=== PATIENT | female | born 1970 | race Caucasian/White ===

== ENCOUNTER 2018-07-29 06:23 | Day surgery (SDC) | payer BC ==
--- NOTE | 2018-07-28 14:08 | PREOPHP ---
Date of Admission: 07/28/2018 History Of Present Illness: Ms. Salazar is a 48-year-old female, nulligravida, who is admitted for evaluation of postmenopausal bleeding. She has documented menopause by outpatient FSH testing. She has had bleeding for almost a month period of time. Attempted endometrial office biops y was not successful because of cervical stenosis because of lack of prior and delivery. S he is admitted for hysteroscopy, dilatation and curettage for evaluation of her bleeding. Preoperati ve pelvic ultrasound shows 2 small leiomyomata. Past Medical History: Includes no significant hospitalizations, accidents, illnesses or injuries. Current Medications: Include Benicar, losartan and Nexium. Allergies: SHE LISTS A REACTION TO TETRACYCLINE AND AUGMENTIN. Social History: She does not smoke. Family History: Noncontributory. Review of Systems: She reports no recent cough, cold or fever. No recent nausea or vomiting. She denies any breast lum ps or knots. She denies any bowel or bladder issues other than some mild left lower quadrant discomf ort. Ultrasound has not shown evidence of Retail Representative pathology on that side. Physical Examination: General: Reveals female, in no apparent distress. Neck: Supple without adenopathy or thyromegaly. Lungs: Clear. Cardiac: Regular rate and rhythm without murmurs. Breasts: Not examined. Abdomen: Without organosplenomegaly. Pelvic: Normal female external genitalia. Vaginal wall is pink and rugated. Cervix is nulliparous. Bimanual, no abnormalities. Extremities: No cyanosis, clubbing, or edema. Impression: 1.Postmenopausal bleeding. 2.Leiomyomata. Plan: The patient will undergo hysteroscopy and D and C for evaluation of postmenopausal bleeding. Risks and benefits are discussed. She has signed operative permit in my presence. CHRIS/BRYCE Voice ID: [id number]
[2018-07-28 15:25] LABS: Absolute Lymphocytes (CBC) 1.7 K/uL (0.7-4.9); Absolute Monocytes 0.6 K/uL (0.1-1.3); Absolute Neutrophil 3.6 K/uL (1.8-8.0); Basophils % 0.3 % (0-1.3); Eosinophils % 1.2 % (0-4.4); Hematocrit 40.1 % (36.0-45.0); MPV 7.4 fL (7.6-11.3); Monocytes % 9.9 % (3.3-12.3); RBC Red Blood Cell Count 4.76 M/uL (3.86-4.86)
[2018-07-28 15:38] LABS: Potassium 4.1 mmol/L (3.5-5.1)
[2018-07-29] MEDS ORDERED: Ringers Lactate 1,000 ML IV ONE (06:38)
[2018-07-29] MEDS ORDERED: LIDOCAINE 1% MPF 5 ML VIAL ONE (06:40)
[2018-07-29] MEDS ORDERED: NA CHLORIDE 0.9% 1,000 ML ONE (07:12)
[2018-07-29] MEDS ORDERED: FENTANYL CITR 100 MCG/2 ML ONE (07:18)
[2018-07-29] MEDS ORDERED: PROPOFOL 200 MG/20 ML VIAL IV ONE (07:18)
[2018-07-29] MEDS ORDERED: MIDAZOLAM HCL 2 MG/2 ML INJ ONE (07:19)
[2018-07-29] MEDS ORDERED: LIDOCAINE 2% MPF 5 ML VIAL ONE (07:19)
[2018-07-29] MEDS: SILVER NITRATE 1 APPL TOP ONE ×2 (07:53→07:55)
[2018-07-29] MEDS ORDERED: KETOROLAC 30 MG/ML INJ ONE (07:56)
--- NOTE | 2018-07-29 17:45 | OP ---
Surgeon: Rahul Gonzales MD Documentation Analyst: None. Preoperative Diagnosis: Postmenopausal bleeding. Procedures: Hysteroscopy, dilatation and curettage of the uterine endometrium. Postoperative Diagnosis: Postmenopausal bleeding. Description Of Procedure: After satisfactory level of general anesthesia was obtained, the patient w as prepped and draped in the usual fashion in high leg holders for vaginal surgery. Weighted speculu m placed in posterior vagina. Cervix visualized, grasped with single-tooth tenaculum. Uterus was so unded to approximately 8 cm. Cervix dilated slightly to accept the hysteroscope. Visualization of t he endometrial contents revealed a somewhat thin endometrium. No obvious polyps or other areas of co ncern. Hysteroscope was removed. Brief curettage productive of minimal tissue was performed. The p atient was awakened, taken to the recovery room in satisfactory condition. One area of bleeding wher e the tenaculum was on the anterior cervix was treated with silver nitrate cautery. Estimated Total Blood Loss: Less than 5 mL. Anesthesia: HEDY Leiva, and Nasir Valenzuela/BRYCE Voice ID: [id number] Report ID: [id number]
--- NOTE | 2018-07-29 17:51 | DS ---
Date of Discharge: 07/29/2018 Final Hospital Discharge Diagnosis: Postmenopausal bleeding. Complications: None. Procedures: Hysteroscopy, dilatation and curettage up the endometrium. Hospital Course: The patient is a 48-year-old menopausal female with history of approximately 1 adalberto h of bleeding. Because of inability to do an outpatient endometrial biopsy, hysteroscopy and D and C were performed with minimal findings. The patient was dismissed to be seen back in my office in 2 w eeks. Lab work included a CBC with hemoglobin and hematocrit of 13.6 and 40.1 with normal electrolyt es. She was noted to have 2 small leiomyomata on ultrasound examination preoperatively. CHRIS/BRYCE Voice ID: [id number] Report ID: [id number]
== END 2018-07-29 09:25 | disposition home or self-care (01) ==
LOC: OR 06:23
PROVIDERS: ATTEND Specialist
PROC: 0UJD8ZZ Inspection of Uterus and Cervix, Via Natural or Artificial Opening Endoscopic (ICD-10-PCS; 2018-07-29)
PROC: 0UDB7ZX Extraction of Endometrium, Via Natural or Artificial Opening, Diagnostic (ICD-10-PCS; principal; 2018-07-29 07:30)
DX: N95.0 Postmenopausal bleeding (principal); I10 Essential (primary) hypertension; K21.9 Gastro-esophageal reflux disease without esophagitis; Z88.1 Allergy status to other antibiotic agents
CPT/HCPCS: 36415; 80048; 85025; 88305; J2250; J2704; J3010; J7030

== ENCOUNTER 2020-09-26 14:27 | Emergency (ER) | payer BC ==
--- OUTSIDE RECORDS SUMMARY | 2020-09-26 14:31 | XMS REPORT | Continuity of Care Document ---
:1970 Author Organization [facility] t Address [address] [place] [address] Care Team Providers Name Role Phone Lab, Fam Pob I Attending Clinician Unavailable Only, Test Attending Clinician Unavailable Doctor Unassigned, Name Attending Clinician Unavailable Problems This patient has no known problems. Allergies, Adverse Reactions, Alerts This patient has no known allergies or adverse reactions. Medications This patient has no known medications. Procedures This patient has no known procedures. Encounters Start End Encounter Admission Attending Care Care Encounter Source Date/Time Date/Time Type Type Clinicians Facility Department ID 2020-07-02 2020-07-02 Laboratory Lab, [facility] [id number] 16:27:10 16:47:10 Only Fam Pob I Health [id number] [place] [id number] [facility] [phone] nal [address] 2020-06-12 2020-06-12 Laboratory Only, [facility] [id number] 14:47:15 15:02:15 Only Test [place] [id number] [place] [id number] [place] [id number] [id number] 2020-06-12 2020-06-12 Orders Doctor UREÑA [id number] 00:00:00 00:00:00 Only Unassigned, YVETTE [id number] [place] [facility] [id number] 2020-04-23 2020-04-23 Laboratory Lab, [facility] [id number] 12:45:26 13:05:26 Only Fam Pob I Health [id number] [place] [id number] [place] [id number] nal 044 [address] 2020-04-23 2020-04-23 Letter Doctor ADELITA [id number] 00:00:00 00:00:00 (Out) Unassigned, YVETTE [id number] [place] [facility] [id number] 044 Results This patient has no known results.
--- NOTE | 2020-09-26 16:36 | RAD REPORT ---
EXAM DESCRIPTION: RAD - Chest Single View - 09/26/2020 4:17 pm CLINICAL HISTORY: N/V Chest pain. COMPARISON: Chest Pa And Lat (2 Views) dated 12/09/2017; ABDOMEN ACUTE SERIES dated 03/09/2006 FINDINGS: Portable technique limits examination quality. The lungs are grossly clear. The heart is normal in size. No displaced fractures.Cervical hardware pl ate noted. IMPRESSION: No acute intrathoracic process suspected.
[2020-09-26 16:38] LABS: Absolute Lymphocytes (CBC) 1.3 K/uL (0.7-4.9); Basophils % 0.4 % (0-1.3); Lymphocytes % 38.3 % (15.3-44.8); MPV 7.2 fL (7.6-11.3); RBC Red Blood Cell Count 4.69 M/uL (3.86-4.86)
[2020-09-26 16:51] LABS: Protime INR 0.97
[2020-09-26] MEDS ORDERED: NA CHLORIDE 0.9% 1,000 ML ONE (16:54)
[2020-09-26] MEDS ORDERED: ONDANSETRON 4 MG/2 ML VIAL ONE (16:54)
[2020-09-26] MEDS ORDERED: FAMOTIDINE 20 MG/2 ML VIAL IV ONE (16:55)
[2020-09-26 16:56] LABS: ALT/SGPT 51 U/L (12-78); Alkaline Phosphatase 62 U/L (45-117); BUN Blood Urea Nitrogen 13 mg/dL (7-18); Bicarbonate 25 mmol/L (21-32); Bilirubin Direct < 0.1 mg/dL (0-0.2); Bilirubin Total 0.5 mg/dL (0.2-1.0); Glucose Level 99 mg/dL (74-106); Lipase 84 U/L (73-393); NT PRO-BNP 51 pg/mL (<125); Potassium 4.5 mmol/L (3.5-5.1); Protein, Total 7.9 g/dL (6.4-8.2); Sodium Level 139 mmol/L (136-145); Troponin (Emerg Dept Use Only) < 0.02 ng/mL (0.0-0.045)
[2020-09-26 16:57] LABS: AST/SGOT 39 U/L (15-37)
[2020-09-26 17:12] LABS: SARS-COV-2 RT PCR POSITIVE (NEGATIVE)
--- NOTE | 2020-09-26 17:55 | EDPHYS ---
Physician Documentation [facility] Name: Manisha Salazar Age: 50 yrs Sex: Female : 1970 Arrival Date: 09/26/2020 Time: 14:29 Bed 18 Private MD: ED Physician Martinez Mensah HPI: 09/26 15:30 This 50 yrs old Female presents to ER via Ambulatory with complaints of cp Nausea, Blood Pressure Problem. 15:30 The patient presents to the emergency department with nausea, with "dry heaves", cp diarrhea, that is intermittent, 1 times today. 15:30 Onset: The symptoms/episode began/occurred today. Possible causes: unknown. Associated cp signs and symptoms: Pertinent negatives: low blood pressure, cough. Severity of symptoms: in the emergency department the symptoms have improved mildly. Patient reports being referred to ED for evaluation and COVID testing after having nausea with dry heaving today, 1 episode of diarrhea while having blood drawn. Historical: - Allergies: 14:41 TETRACYCLINES; ll1 - PMHx: 14:41 Hypertension; High Cholesterol; Diabetes - NIDDM; ll1 - PSHx: 14:41 None; ll1 - Immunization history:: Flu vaccine is up to date. - Social history:: Smoking status: Patient denies any tobacco usage or history of. ROS: 15:35 Constitutional: Negative for body aches, chills, fever, poor PO intake. cp 15:35 Eyes: Negative for injury, pain, redness, and discharge. cp 15:35 ENT: Negative for ear pain, sore throat, difficulty swallowing, difficulty handling secretions. 15:35 Cardiovascular: Negative for chest pain. 15:35 Respiratory: Positive for cough, Negative for shortness of breath, wheezing. 15:35 Abdomen/GI: Positive for nausea, diarrhea, Negative for abdominal pain, constipation, active vomiting. 15:35 Neuro: Negative for altered mental status, dizziness, headache, syncope, weakness. 15:35 All other systems are negative. Exam: 15:40 Constitutional: The patient appears in no acute distress, alert, awake, non-toxic, well cp developed, well nourished. 15:40 Head/Face: Normocephalic, atraumatic. cp 15:40 Eyes: Periorbital structures: appear normal, Conjunctiva: normal, no exudate, no injection, Sclera: no appreciated abnormality, Lids and lashes: appear normal, bilaterally. 15:40 ENT: External ear(s): are unremarkable, Nose: is normal, Mouth: Lips: moist, Oral mucosa: moist, Posterior pharynx: Airway: no evidence of obstruction, patent. 15:40 Neck: ROM/movement: is normal, is supple, no meningismus, no nuchal rigidity. 15:40 Chest/axilla: Inspection: normal. 15:40 Cardiovascular: Rate: normal, Rhythm: regular, Edema: is not appreciated, JVD: is not appreciated. 15:40 Respiratory: the patient does not display signs of respiratory distress, Respirations: normal, no use of accessory muscles, no retractions, labored breathing, is not present, Breath sounds: are clear throughout, no decreased breath sounds. 15:40 Abdomen/GI: Inspection: abdomen appears normal, Bowel sounds: active, all quadrants, Palpation: soft, in all quadrants. 15:40 Back: pain, is absent, ROM is normal. 15:40 Neuro: Orientation: to person, place \\T\\ time. Mentation: is normal, Motor: moves all fours, strength is normal. 16:15 ECG was reviewed by the Attending Physician. Vital Signs: 14:37 BP 147 / 94; Pulse 79; Resp 17; Temp 99.3; Pulse Ox 96% on R/A; Weight 98.43 kg; Height ll1 5 ft. 5 in. (165.10 cm); Pain 0/10; 15:58 BP 142 / 81 Supine; Pulse 77; mt 15:58 BP 134 / 76 Sitting; Pulse 79; mt 15:58 BP 157 / 85 Standing; Pulse 102; mt 17:00 BP 129 / 73; Pulse 67; Resp 18; Pulse Ox 96% ; dm14 18:00 BP 115 / 73; Pulse 67; Resp 18; Pulse Ox 96% ; dm14 14:37 Body Mass Index 36.11 (98.43 kg, 165.10 cm) ll1 MDM: 15:26 Patient medically screened. cp 17:53 Data reviewed: vital signs, nurses notes, lab test result(s), EKG, radiologic studies, cp plain films. 17:53 Test interpretation: by ED physician or midlevel provider: ECG, plain radiologic cp studies. Counseling: I had a detailed discussion with the patient and/or guardian regarding: the historical points, exam findings, and any diagnostic results supporting the discharge/admit diagnosis, lab results, radiology results, to return to the emergency department if symptoms worsen or persist or if there are any questions or concerns that arise at home. Response to treatment: the patient's symptoms have markedly improved after treatment. ED course: VSS. Nausea markedly improved and no vomiting observed while monitoring patient in ED. Patient appears non-toxic and no signs of respiratory distress. Will discharge patient to home to quarantine. Patient instructed to return to ED worsening symptoms. 09/26 15:43 Order name: COVID-19 : Document "Date of Symptom Onset" if Symptomatic. cp 09/26 15:43 Order name: Basic Metabolic Panel cp 09/26 15:43 Order name: CBC with Diff cp 09/26 15:43 Order name: LFT's cp 09/26 15:43 Order name: Magnesium cp 09/26 15:43 Order name: NT PRO-BNP; Complete Time: 17:17 cp 09/26 15:43 Order name: PT-INR; Complete Time: 17:17 cp 09/26 15:43 Order name: Troponin (emerg Dept Use Only); Complete Time: 17:17 cp 09/26 15:44 Order name: Basic Metabolic Panel; Complete Time: 17:17 EDMS 09/26 17:17 Interpretation: Normal except: GFR 83. cp 09/26 15:44 Order name: CBC with Automated Diff; Complete Time: 16:48 EDMS 09/26 16:49 Interpretation: Normal except: WBC 3.40; MPV 7.2; MN% 13.1; NEUT A 1.6. cp 09/26 15:44 Order name: Lipase; Complete Time: 17:17 cp 09/26 15:44 Order name: Liver (Hepatic) Function; Complete Time: 17:17 EDMS 09/26 17:17 Interpretation: Normal except: GLOB 3.9; A/G 1.0; AST 39. cp 09/26 15:43 Order name: Orthostatics; Complete Time: 15:59 cp 09/26 15:43 Order name: XRAY Chest (1 view); Complete Time: 16:48 cp 09/26 15:43 Order name: EKG; Complete Time: 15:44 cp 09/26 15:43 Order name: Cardiac monitoring; Complete Time: 16:14 cp 09/26 15:43 Order name: EKG - Nurse/Tech; Complete Time: 16:14 cp 09/26 15:43 Order name: IV Saline Lock; Complete Time: 17:06 cp 09/26 15:43 Order name: Labs collected and sent; Complete Time: 16:29 cp 09/26 15:43 Order name: O2 Per Protocol; Complete Time: 16:14 cp 09/26 15:43 Order name: O2 Sat Monitoring; Complete Time: 16:14 cp 09/26 15:44 Order name: Magnesium; Complete Time: 17:17 EDMS 09/26 17:13 Order name: COVID-19/FLU A+B; Complete Time: 17:17 EDMS 09/26 17:17 Interpretation: Abnormal: SARSCOV2 RT PCR POSITIVE. cp 09/26 17:18 Order name: PO challenge; Complete Time: 18:50 cp EC:15 Rate is 81 beats/min. Rhythm is regular. WI interval is normal. QRS interval is normal. cp QT interval is normal. T waves are Inverted in lead III. Interpreted by me. Reviewed by me. Administered Medications: 16:50 Drug: NS 0.9% 1000 ml Route: IV; Rate: 1 bolus; Site: right forearm; dm14 18:55 Follow up: IV Status: Completed infusion; IV Intake: 1000ml dm14 16:50 Drug: Zofran (Ondansetron) 4 mg Route: IVP; Site: right forearm; dm14 18:54 Follow up: Response: No adverse reaction dm14 16:50 Drug: Pepcid 20 mg Route: IVP; Site: right forearm; dm14 18:54 Follow up: Response: No adverse reaction dm14 Disposition: 21:58 Co-signature as Attending Physician, Martinez Mensah MD I agree with the assessment and kdr plan of care. Disposition: 09/26/20 17:54 Discharged to Home. Impression: Nausea and vomiting, Coronavirus infection, unspecified, Diarrhea, unspecified, Cough. - Condition is Stable. - Discharge Instructions: Nausea and Vomiting, Adult, Cough, Adult, COVID-19. - Prescriptions for Eliquis 2.5 mg Oral tablet - take 1 tablet by ORAL route 2 times per day for 15 days; 30 tablet. ivermectin 3 mg Oral tablet - take 6 tablet by ORAL route every other day x2 doses; 12 tablet. Zithromax Z- Isai 250 mg Oral Tablet - take 1 tablet by ORAL route as directed for 5 days Day 1 - take two (2) tablets one time. Day 2, 3, 4 , 5 take one (1) tablet once daily.; 6 tablet. Prednisone 20 mg Oral Tablet - take 2 tablets by ORAL route once daily for 5 days then take 1 tablet daily for 5 days; 15 tablet. Zofran 4 mg Oral Tablet - take 1 tablet by ORAL route every 12 hours As needed; 20 tablet. - Medication Reconciliation Form, Thank You Letter, Antibiotic Education, Prescription Opioid Use form. - Follow up: Conrad Laird MD; When: 2 - 3 days; Reason: Worsening of condition. - Problem is new. - Symptoms have improved. Signatures: Dispatcher [employer] EDMS Martinez Mensah MD MD kdr Oswald Senior PA PA cp Lewis, Lynsay, RN RN ll1 Giana Dhillon RN RN dm14 Corrections: (The following items were deleted from the chart) 16:11 15:44 Influenza Screen (A \\T\\ B)+BA.LAB.BRZ ordered. EDMS EDMS 16:17 15:44 CORONAVIRUS ordered. EDMS EDMS 18:56 17:54 09/26/2020 17:54 Discharged to Home. Impression: Nausea and vomiting; Coronavirus dm14 infection, unspecified; Diarrhea, unspecified; Cough. Condition is Stable. Forms are Medication Reconciliation Form, Thank You Letter, Antibiotic Education, Prescription Opioid Use. Follow up: Conrad Laird; When: 2 - 3 days; Reason: Worsening of condition. Problem is new. Symptoms have improved. cp
--- NOTE | 2020-09-26 17:55 | ER ---
Nurse's Notes [facility] Name: Manisha Salazar Age: 50 yrs Sex: Female : 1970 Arrival Date: 09/26/2020 Time: 14:29 Bed 18 Private MD: Diagnosis: Nausea and vomiting;Coronavirus infection, unspecified;Diarrhea, unspecified;Cough Presentation: 09/26 14:37 Chief complaint: Patient states: BP has been low the past week. 90's, 107 systolic. ll1 Fever for 2 days (101 at home). + nausea, diarrhea, and dry heaves when getting blood drawn today. Sent in by Dr. Laird for eval and covid test. + congestion. Coronavirus screen: Client denies travel out of the [place] in the last 14 days. congestion, fatigue, fever, nausea, vomiting. Client presents with at least one sign or symptom that may indicate coronavirus-19. Standard/surgical mask placed on the client. Ebola Screen: Patient denies travel to an Ebola-affected area in the 21 days before illness onset. Initial Sepsis Screen: Does the patient meet any 2 criteria? No. Patient's initial sepsis screen is negative. Does the patient have a suspected source of infection? Yes: Other: N/V. Risk Assessment: Do you want to hurt yourself or someone else? Patient reports no desire to harm self or others. Onset of symptoms was September 20, 2020. 14:37 Method Of Arrival: Ambulatory ll1 14:37 Acuity: CHANELL 3 ll1 Historical: - Allergies: 14:41 TETRACYCLINES; ll1 - PMHx: 14:41 Hypertension; High Cholesterol; Diabetes - NIDDM; ll1 - PSHx: 14:41 None; ll1 - Immunization history:: Flu vaccine is up to date. - Social history:: Smoking status: Patient denies any tobacco usage or history of. Screenin:00 Abuse screen: Denies threats or abuse. Denies injuries from another. Nutritional dm14 screening: No deficits noted. Tuberculosis screening: No symptoms or risk factors identified. Fall Risk None identified. Assessment: 18:50 General: Appears in no apparent distress. comfortable, well groomed, Behavior is calm, dm14 cooperative, appropriate for age. 18:56 GI: dm14 Vital Signs: 14:37 BP 147 / 94; Pulse 79; Resp 17; Temp 99.3; Pulse Ox 96% on R/A; Weight 98.43 kg; Height ll1 5 ft. 5 in. (165.10 cm); Pain 0/10; 15:58 BP 142 / 81 Supine; Pulse 77; mt 15:58 BP 134 / 76 Sitting; Pulse 79; mt 15:58 BP 157 / 85 Standing; Pulse 102; mt 17:00 BP 129 / 73; Pulse 67; Resp 18; Pulse Ox 96% ; dm14 18:00 BP 115 / 73; Pulse 67; Resp 18; Pulse Ox 96% ; dm14 14:37 Body Mass Index 36.11 (98.43 kg, 165.10 cm) ll1 ED Course: 14:29 Patient arrived in ED. as 14:40 Triage completed. ll1 14:41 Arm band placed on. ll1 15:03 Oswald Senior PA is PHCP. cp 15:03 Martinez Mensah MD is Attending Physician. cp 15:21 Giana Dhillon, MELECIO is Primary Nurse. dm14 16:13 EKG done, by ED staff, reviewed by Oswald ESCALONA. mt 16:17 XRAY Chest (1 view) In Process Unspecified. EDMS 16:39 Inserted saline lock: 20 gauge in right wrist, using aseptic technique. jl7 17:53 Conrad Laird MD is Referral Physician. cp 18:00 Patient has correct armband on for positive identification. Bed in low position. Call dm14 light in reach. 18:00 No provider procedures requiring assistance completed. IV discontinued, intact, dm14 bleeding controlled, No redness/swelling at site. Pressure dressing applied. Administered Medications: 16:50 Drug: NS 0.9% 1000 ml Route: IV; Rate: 1 bolus; Site: right forearm; dm14 18:55 Follow up: IV Status: Completed infusion; IV Intake: 1000ml dm14 16:50 Drug: Zofran (Ondansetron) 4 mg Route: IVP; Site: right forearm; dm14 18:54 Follow up: Response: No adverse reaction dm14 16:50 Drug: Pepcid 20 mg Route: IVP; Site: right forearm; dm14 18:54 Follow up: Response: No adverse reaction dm14 Intake: 18:55 IV: 1000ml; Total: 1000ml. dm14 Outcome: 17:54 Discharge ordered by . cp 18:55 Discharged to home ambulatory. dm14 18:55 Condition: stable 18:55 Discharge instructions given to patient, Instructed on discharge instructions, follow up and referral plans. medication usage, Demonstrated understanding of instructions, follow-up care, medications. 18:56 Patient left the ED. dm14 Signatures: Dispatcher [employer] EDElise Gonzlaez Corey, PA PA cp Leal, Jahala, RN RN jl7 Geni Choi mt, Lynsay, RN RN ll1 Giana Dhillon RN RN dm14
[2020-09-26 20:23] VITALS: TEMP 99.3; O2SAT 96
[2020-09-26 20:27] VITALS: BP 115/73
== END 2020-09-26 18:56 | disposition home or self-care (01) ==
LOC: ER 14:27
DX: U07.1 COVID-19 (principal); R11.2 Nausea with vomiting, unspecified; R05 Cough; R19.7 Diarrhea, unspecified; I10 Essential (primary) hypertension; E78.00 Pure hypercholesterolemia, unspecified; E11.9 Type 2 diabetes mellitus without complications
CPT/HCPCS: 96361; 93005; 85025; 80048; 36415; 83735; 85610; 80076; 84484; 83690; 83880; 0240U; 71045; 96375; 96374; 99284; J7030; J2405

== ENCOUNTER 2020-10-07 12:14 | Emergency (ER) | payer BC ==
--- OUTSIDE RECORDS SUMMARY | 2020-10-07 12:16 | XMS REPORT | Continuity of Care Document ---
:1970 Author Organization [facility] t Address [address] [place] [address] Care Team Providers Name Role Phone Therapy, Covid Infusion Attending Clinician Unavailable Doctor Unassigned, Name Attending Clinician Unavailable Lab, Fam Pob I Attending Clinician Unavailable Only, Test Attending Clinician Unavailable Problems This patient has no known problems. Allergies, Adverse Reactions, Alerts This patient has no known allergies or adverse reactions. Medications This patient has no known medications. Procedures This patient has no known procedures. Encounters Start End Encounter Admission Attending Care Care Encounter Source Date/Time Date/Time Type Type Clinicians Facility Department ID 2020-10-01 2020-10-01 Nurse Therapy, [facility] [id number] 16:04:20 18:01:29 Visit [facility] [id number] Infusion [place] [id number] Surgical [id number] [place] 053 2020-10-01 2020-10-01 Orders Doctor ADELITA [id number] [id number] 00:00:00 00:00:00 Only Unassigned, Y[place] [id number] [place] [facility] [id number] [id number] [id number] 2020-07-02 2020-07-02 Laboratory Lab, [facility] 1.2.840.114 [id number] 16:27:10 16:47:10 Only Fam Pob I Health [id number] [place] [id number] [place] [id number] nal 0[address] 2020-06-12 2020-06-12 Laboratory Only, [facility] 1.2.840.114 [id number] 14:47:15 15:02:15 Only Test [place] [id number] [place] [id number] [place] [id number] 2020-06-12 2020-06-12 Orders Doctor ADELITA [id number] [id number] 00:00:00 00:00:00 Only Unassigned, YVETTE [id number] [place] [id number] [id number] 2020-04-23 2020-04-23 Laboratory Lab, [facility] 1.2.840.114 [id number] 12:45:26 13:05:26 Only Fam Pob I Health [id number] [place] [id number] [facility] [id number] nal 044 [address] 2020-04-23 2020-04-23 Letter Doctor ADELITA 1.2.840.114 [id number] 00:00:00 00:00:00 (Out) Unassigned, YVETTE [id number] [place] [id number] 044 Results This patient has no known results.
[2020-10-07] MEDS ORDERED: dexAMETHasone 10 MG/ML VIAL ONE (15:51)
[2020-10-07] MEDS ORDERED: NA CHLORIDE 0.9% 500 ML ONE (15:52)
[2020-10-07] MEDS ORDERED: MAGNESIUM SULFATE 1 gm IVPB 1 GM/100 ML BAG IV ONE (15:52)
[2020-10-07 16:37] LABS: Protime INR 1.03
[2020-10-07 16:39] LABS: Basophils % 0.2 % (0-1.3); Hematocrit 39.2 % (36.0-45.0); Lymphocytes % 16.4 % (15.3-44.8); MPV 7.3 fL (7.6-11.3)
[2020-10-07 16:51] LABS: ALT/SGPT 42 U/L (12-78); AST/SGOT 12 U/L (15-37); Albumin 3.8 g/dL (3.4-5.0); Alkaline Phosphatase 62 U/L (45-117); BUN Blood Urea Nitrogen 19 mg/dL (7-18); Bicarbonate 27 mmol/L (21-32); Bilirubin Direct 0.2 mg/dL (0-0.2); Bilirubin Total 0.7 mg/dL (0.2-1.0); Glucose Level 165 mg/dL (74-106); Magnesium 2.6 mg/dL (1.8-2.4); NT PRO-BNP 328 pg/mL (<125); Potassium 4.3 mmol/L (3.5-5.1); Protein, Total 7.7 g/dL (6.4-8.2); Sodium Level 141 mmol/L (136-145); Troponin (Emerg Dept Use Only) < 0.02 ng/mL (0.0-0.045)
--- NOTE | 2020-10-07 18:07 | RAD REPORT ---
EXAM DESCRIPTION: RAD - Chest Single View - 10/07/2020 3:38 pm CLINICAL HISTORY: chest pain, sob, COVID positive COMPARISON: Portable September 26 TECHNIQUE: AP portable chest image was obtained 10/07/2020 3:38 pm . FINDINGS: Scattered small patchy airspace opacities are present in the lung munoz new or progressiv e from the prior study. Given the history, this is most likely a mild bilateral COVID-19 pneumonia. N o pulmonary edema or volume overload finding. Heart and vasculature are normal. No measurable pleural effusion and no pneumothorax. No acute bony abnormality seen. No acute aortic findings suspected. IMPRESSION: Patchy mild bilateral pneumonia pattern most likely a COVID-19 pneumonia given the provi ded history.
--- NOTE | 2020-10-07 18:54 | ER ---
Nurse's Notes [facility] Name: Manisha Salazar Age: 50 yrs Sex: Female : 1970 Arrival Date: 10/07/2020 Time: 12:30 Bed 15 Private MD: Conrad Laird V Diagnosis: Chest pain, unspecified;Malaise and fatigue Presentation: 10/07 12:56 Chief complaint: Patient states: Covid+ 09/26/2020. 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 ca1 Last night, started SOB, bradycardia, dizzy, weakness. Coronavirus screen: Client reports previous positive COVID test result. Date of collection: September 26, 2020 Staff notified of need for isolation. Ebola Screen: Patient negative for fever greater than or equal to 101.5 degrees Fahrenheit, and additional compatible Ebola Virus Disease symptoms Patient denies exposure to infectious person. Patient denies travel to an Ebola-affected area in the 21 days before illness onset. No symptoms or risks identified at this time. Initial Sepsis Screen: Does the patient meet any 2 criteria? No. Patient's initial sepsis screen is negative. Does the patient have a suspected source of infection? No. Patient's initial sepsis screen is negative. Risk Assessment: Do you want to hurt yourself or someone else? Patient reports no desire to harm self or others. Onset of symptoms was October 07, 2020. 12:56 Method Of Arrival: Wheelchair ca1 12:56 Acuity: CHANELL 3 ca1 Triage Assessment: 15:10 General: Appears distressed, uncomfortable, ill, Behavior is cooperative, appropriate bp for age, anxious. Pain: Denies pain. EENT: No deficits noted. Neuro: No deficits noted. Cardiovascular: No deficits noted. Respiratory: Reports shortness of breath. GI: No signs and/or symptoms were reported involving the gastrointestinal system. : No signs and/or symptoms were reported regarding the genitourinary system. Derm: No deficits noted. Musculoskeletal: No deficits noted. 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 - Social history:: Smoking status: Patient denies any tobacco usage or history of. Screenin:10 Abuse screen: Denies threats or abuse. Denies injuries from another. Nutritional bp screening: No deficits noted. Tuberculosis screening: No symptoms or risk factors identified. Fall Risk None identified. Assessment: 15:10 General: SEE TRIAGE NOTE. bp 16:38 Reassessment: No changes from previously documented assessment. Patient and/or family bp updated on plan of care and expected duration. Pain level reassessed. Patient is alert, oriented x 3, equal unlabored respirations, skin warm/dry/pink. ALL CURRENT ORDERS COMPLETED. 18:00 Reassessment: No changes from previously documented assessment. Patient and/or family bp updated on plan of care and expected duration. Pain level reassessed. Patient is alert, oriented x 3, equal unlabored respirations, skin warm/dry/pink. ADMIT IN PROCESS. Vital Signs: 12:59 BP 150 / 92; Pulse 64; Resp 15 S; Temp 97.7(TE); Pulse Ox 99% on R/A; Weight 97.98 kg ca1 (R); Height 5 ft. 5 in. (165.10 cm) (R); Pain 6/10; 14:30 BP 154 / 92; Pulse 61; Resp 18; Pulse Ox 97% ; bp 16:39 BP 136 / 88; Pulse 51; Resp 17; Pulse Ox 97% ; bp 18:00 BP 146 / 89; Pulse 55; Resp 16; Pulse Ox 98% ; bp 12:59 Body Mass Index 35.94 (97.98 kg, 165.10 cm) ca1 ED Course: 12:30 Patient arrived in ED. am2 12:31 Marc Pizarro DO is Private Physician. am2 12:31 Conrad Laird MD is Private Physician. am2 12:58 Triage completed. ca1 12:59 Arm band placed on right wrist. EKG completed in triage. Results shown to MD. ca1 15:03 Bill Rose PA is PHCP. jmm 15:03 Oswald Ramsey MD is Attending Physician. jmm 15:04 Barry King, MELECIO is Primary Nurse. bp 15:10 Patient has correct armband on for positive identification. Bed in low position. Call bp light in reach. Side rails up X2. 15:37 XRAY Chest (1 view) In Process Unspecified. EDMS 16:00 Inserted saline lock: 20 gauge in right antecubital area, using aseptic technique. bp Blood collected. 18:53 Conrad Laird MD is Referral Physician. [facility] 19:33 No provider procedures requiring assistance completed. IV discontinued, intact, ss bleeding controlled, No redness/swelling at site. Pressure dressing applied. Administered Medications: 16:00 Drug: NS 0.9% 500 ml Route: IV; Rate: bolus; Site: right antecubital; bp 16:00 Drug: Decadron - Dexamethasone 10 mg Route: IVP; Site: right antecubital; bp 17:59 Follow up: Response: Pain is decreased bp 16:00 Drug: Magnesium Sulfate 1 grams Route: IVPB; Infused Over: 1 hrs; Site: right bp antecubital; Outcome: 18:54 Discharge ordered by MD. [facility] 19:33 Discharged to home ambulatory. ss 19:33 Condition: good 19:33 Discharge instructions given to patient, Instructed on discharge instructions, follow up and referral plans. medication usage, Demonstrated understanding of instructions, follow-up care, medications, Prescriptions given X 1. 19:34 Patient left the ED. ss Signatures: Dispatcher [employer] EDMS Bill Rose PA PA jmm Smirch, Shelby, RN RN Verito Vallejo Brian, RN RN Marisol Barajas RN RN ca1
--- NOTE | 2020-10-07 18:54 | EDPHYS ---
Physician Documentation [facility] Name: Manisha Salazar Age: 50 yrs Sex: Female : 1970 Arrival Date: 10/07/2020 Time: 12:30 Bed 15 Private MD: Conrad Laird V ED Physician Oswald Ramsey HPI: 10/07 16:30 This 50 yrs old Female presents to ER via Wheelchair with complaints of jmm Shortness Of Breath. 16:30 The patient has shortness of breath with light activity. Onset: The symptoms/episode jmm began/occurred gradually, 2 day(s) ago. Duration: The symptoms are continuous. The patient's shortness of breath is aggravated by exertion, light activity, is alleviated by rest. Associated signs and symptoms: Pertinent positives: chest pain, shortness of breath. Modifying factors: The patient symptoms are alleviated by nothing, the patient symptoms are aggravated by activity, movement. Associated signs and symptoms: Pertinent positives: chest pain, non-productive cough. The patient has not experienced similar symptoms in the past. 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 - Social history:: Smoking status: Patient denies any tobacco usage or history of. ROS: 16:30 Constitutional: Positive for body aches, fever. jmm 16:30 Cardiovascular: Positive for chest pain. 16:30 Respiratory: Positive for cough, shortness of breath. 16:30 All other systems are negative. Exam: 16:30 Constitutional: This is a well developed, well nourished patient who is awake, alert, jmm and in no acute distress. Head/Face: atraumatic. Eyes: EOMI, no conjunctival erythema appreciated ENT: Moist Mucus Membranes Neck: Trachea midline, Supple Chest/axilla: Normal chest wall appearance and motion. Cardiovascular: Regular rate and rhythm. No edema appreciated Respiratory: Normal respirations, no respiratory distress appreciated Abdomen/GI: Non distended, soft Back: Normal ROM Skin: General appearance color normal MS/ Extremity: Moves all extremities, no obvious deformities appreciated, no edema noted to the lower extremities Neuro: Awake and alert, normal gait Psych: Behavior is normal, Mood is normal, Patient is cooperative and pleasant 18:04 ECG was reviewed by the Attending Physician. [facility] Vital Signs: 12:59 BP 150 / 92; Pulse 64; Resp 15 S; Temp 97.7(TE); Pulse Ox 99% on R/A; Weight 97.98 kg ca1 (R); Height 5 ft. 5 in. (165.10 cm) (R); Pain 6/10; 14:30 BP 154 / 92; Pulse 61; Resp 18; Pulse Ox 97% ; bp 16:39 BP 136 / 88; Pulse 51; Resp 17; Pulse Ox 97% ; bp 18:00 BP 146 / 89; Pulse 55; Resp 16; Pulse Ox 98% ; bp 12:59 Body Mass Index 35.94 (97.98 kg, 165.10 cm) ca1 MDM: 15:19 Patient medically screened. [facility] 18:50 Data reviewed: vital signs, nurses notes. Counseling: I had a detailed discussion with giana the patient and/or guardian regarding: the historical points, exam findings, and any diagnostic results supporting the discharge/admit diagnosis, lab results, radiology results, the need for outpatient follow up, to return to the emergency department if symptoms worsen or persist or if there are any questions or concerns that arise at home. ED course: Patient is alert and non toxic in appearance. HEART score = 3 . Patient is concerned due to fatigue. Patient's labs are unremarkable. Advised to follow up with Dr. Laird and otherwise given strict return precautions. patient understood and agrees with the plan of care. . 10/07 15:20 Order name: Basic Metabolic Panel; Complete Time: 17:53 [facility] 10/07 15:20 Order name: CBC with Diff; Complete Time: 17:09 [facility] 10/07 15:20 Order name: LFT's; Complete Time: 17:53 [facility] 10/07 15:20 Order name: Magnesium; Complete Time: 17:53 [facility] 10/07 15:20 Order name: NT PRO-BNP; Complete Time: 17:53 [facility] 10/07 15:20 Order name: PT-INR; Complete Time: 17:09 [facility] 10/07 13:00 Order name: EKG; Complete Time: 13:01 ca1 10/07 13:00 Order name: EKG - Nurse/Tech; Complete Time: 13:00 ca1 10/07 15:20 Order name: Troponin (emerg Dept Use Only); Complete Time: 17:53 [facility] 10/07 15:20 Order name: XRAY Chest (1 view); Complete Time: 18:11 [facility] 10/07 17:09 Order name: D-Dimer; Complete Time: 17:53 [facility] 10/07 15:20 Order name: Cardiac monitoring; Complete Time: 15:32 [facility] 10/07 15:20 Order name: IV Saline Lock; Complete Time: 16:35 [facility] 10/07 15:20 Order name: Labs collected and sent; Complete Time: 16:34 [facility] 10/07 15:20 Order name: O2 Per Protocol; Complete Time: 15:32 [facility] 10/07 15:20 Order name: O2 Sat Monitoring; Complete Time: 15:32 jmm EC:04 Rate is 64 beats/min. Rhythm is regular. QRS Nimitz is Normal. VT interval is normal. QRS jmm interval is normal. QT interval is normal. No Q waves. T waves are Normal. No ST changes noted. Reviewed by me. Administered Medications: 16:00 Drug: NS 0.9% 500 ml Route: IV; Rate: bolus; Site: right antecubital; bp 16:00 Drug: Decadron - Dexamethasone 10 mg Route: IVP; Site: right antecubital; bp 17:59 Follow up: Response: Pain is decreased bp 16:00 Drug: Magnesium Sulfate 1 grams Route: IVPB; Infused Over: 1 hrs; Site: right bp antecubital; Disposition: 10/08 09:45 Co-signature as Attending Physician, Oswald Ramsey MD I agree with the assessment and [facility] plan of care. Disposition: 10/07/20 18:54 Discharged to Home. Impression: Chest pain, unspecified, Malaise and fatigue. - Condition is Stable. - Discharge Instructions: Nonspecific Chest Pain, Fatigue, COVID-19. - Prescriptions for dexamethasone 6 mg Oral tablet - take 1 tablet by ORAL route as directed 9 days Please take 1 tab by mouth 3 times a day for 3 days, then 1 tab by mouth twice a day for 3 days, then 1 tab by mouth once daily for 3 days.; 18 tablet. - Medication Reconciliation Form, Thank You Letter, Antibiotic Education, Prescription Opioid Use form. - Follow up: Conrad Laird MD; When: 1 - 2 days; Reason: Recheck today's complaints, Continuance of care, Re-evaluation by your physician. Signatures: Dispatcher [employer] EDOswald Ellison MD MD cha Mickail, Joel, PA PA jmm Smirch, Shelby, RN RN ss Barry King RN RN bp Marisol Dee RN RN ca1 Corrections: (The following items were deleted from the chart) 10/07 19:34 18:54 10/07/2020 18:54 Discharged to Home. Impression: Chest pain, unspecified; Malaise ss and fatigue. Condition is Stable. Forms are Medication Reconciliation Form, Thank You Letter, Antibiotic Education, Prescription Opioid Use. Follow up: Conrad Laird; When: 1 - 2 days; Reason: Recheck today's complaints, Continuance of care, Re-evaluation by your physician. bayron
[2020-10-08 00:50] VITALS: TEMP 97.7
[2020-10-08 00:54] VITALS: BP 146/89; O2SAT 98
--- NOTE | 2020-10-09 04:38 | EKG ---
Test Date: 2020-10-07 Test Time: 11:55:00 [employer] Agent: ELAINA MEASUREMENT RESULTS: Intervals: Rate: 64 KS: 148 QRSD: 76 QT: 406 QTc: 418 Adin: P: 40 KS: 148 QRS: 46 T: 45 INTERPRETIVE STATEMENTS: Normal sinus rhythm Normal ECG Compared to ECG 09/26/2020 16:08:17 No significant changes Electronically Signed On 10-09-20 04:32:55 CDT by Neo Phelan
== END 2020-10-07 19:34 | disposition home or self-care (01) ==
LOC: ER 12:14
DX: R07.9 Chest pain, unspecified (principal); R53.81 Other malaise; R53.83 Other fatigue; Z86.16 Personal history of COVID-19; I10 Essential (primary) hypertension; Z88.1 Allergy status to other antibiotic agents
CPT/HCPCS: 93005; 85025; 80048; 36415; 83735; 85610; 85379; 80076; 84484; 83880; 71045; J3475; J1100; J7040; 96374; 96375; 99284